=== PATIENT | female | born 1980 | race Caucasian/White ===

== ENCOUNTER → 2023-11-19 09:31 | Outpatient (REF) | payer OTHER, SELFPAY | LOC: HWWDC 09:31 | PROVIDERS: ATTENDING PHYSICIAN Family Medicine | DX: Z12.31 Encounter for screening mammogram for malignant neoplasm of breast (principal) | CPT/HCPCS: 77063; 77067 ==

== ENCOUNTER → 2023-12-01 09:24 | Outpatient (REF) | payer OTHER, SELFPAY | LOC: WDC 09:24 | PROVIDERS: ATTENDING PHYSICIAN Family Medicine | DX: R92.8 Other abnormal and inconclusive findings on diagnostic imaging of breast (principal) | CPT/HCPCS: 77065 ==

== ENCOUNTER → 2024-01-05 10:18 | Outpatient (REF) | payer OTHER, SELFPAY | LOC: RAD 10:18 | PROVIDERS: ATTENDING PHYSICIAN Nurse Practitioner Family | DX: M79.89 Other specified soft tissue disorders (principal) | CPT/HCPCS: 76705 ==

== ENCOUNTER → 2024-06-02 11:54 | Outpatient (REF) | payer OTHER, SELFPAY | LOC: WDC 11:54 | PROVIDERS: ATTENDING PHYSICIAN Family Medicine; FAMILY PHYSICIAN Nurse Practitioner Family | DX: R92.1 Mammographic calcification found on diagnostic imaging of breast (principal) | CPT/HCPCS: 77061; 77065 ==

== ENCOUNTER → 2024-12-02 08:59 | Outpatient (REF) | payer OTHER, SELFPAY | LOC: HWWDC 08:59 | PROVIDERS: ATTENDING PHYSICIAN Family Medicine; FAMILY PHYSICIAN Nurse Practitioner Family | DX: Z12.31 Encounter for screening mammogram for malignant neoplasm of breast (principal) | CPT/HCPCS: 77063; 77067 ==